=== PATIENT | female | born 1960 | race African-American/Black ===

== ENCOUNTER 2018-05-15 14:26 | Emergency (ER) | payer BC ==
[~2018-05-15] VITALS: Ht 177.8 cm; Wt 86.2 kg
[2018-05-15 15:43] LABS: ABSOLUTE NEUTROPHILS 7.4 thou/uL (1.4-8.2); BASOPHILS 0.7 % (0.0-2.0); EOSINOPHILS 1.5 % (0.0-3.0); HEMATOCRIT 40.4 % (37.0-47.0); HEMOGLOBIN 14.1 gm/dL (12.0-15.0); LYMPHOCYTES 18.8 % (24.0-44.0); MCH 30.8 pg (26.0-34.0); MCHC 34.8 g/dL (28.0-37.0); MCV 88.5 fL (80.0-100.0); MONOCYTES 6.5 % (1.0-8.0); PLATELET COUNT 356 thou/uL (150-400); POLYS 72.5 % (36.0-66.0); RBC 4.56 mil/uL (4.20-5.00); RDW 14.8 % (10.5-14.5); WBC 10.3 thou/uL (4.0-11.0)
[2018-05-15 15:48] LABS: ANION GAP 10 mmol/L (7-16); BUN 21 mg/dL (7-18); CHLORIDE 103 mmol/L (98-107); CO2 27 mmol/L (21-32); CREATININE 1.1 mg/dL (0.6-1.0); GLUCOSE 122 mg/dL (74-106); SODIUM 140 mmol/L (136-145)
[2018-05-15 15:56] LABS: TROPONIN-I <0.06 ng/mL (<0.06)
[2018-05-15] MEDS ORDERED: COZAAR 50 MG TA50 M1 PO (16:04)
[2018-05-15] MEDS ORDERED: AMLODIPINE-OLM1 EAC1 PO (16:04)
[2018-05-15] MEDS ORDERED: ATENOLOL 25 MG25 M1 PO (16:05)
[2018-05-15] MEDS ORDERED: MOBIC7.5 MG PO (17:15)
[2018-05-15] MEDS ORDERED: OMEPRAZOLE 20 M20 M1 PO (17:15)
[2018-05-15 17:27] VITALS: BP 136/81
--- NOTE | 2018-05-16 07:46 | EKG ---
[address] [employer] [place] [address] ELECTROCARDIOGRAM REPORT Name: SHANE LIRIANO Room #: DEP Queta#: [id number] ������������������ Admission: 05/15/18 ������������������ Attend Phys: Discharge: 05/15/18 ������������������ Date of : 58 Report #: [id number] ����������������������������������������������������������������� [id number] THIS REPORT FOR: //name// [facility] ED Test Date: 2018-05-15 Test Time: 14:42:31 Pat Name: SHANE LIRIANO Department: Room: Gender: F [employer] Consultant: . : 1960 Requested By: Wilbert Chase Order Number: [id number] MD: Elver Ayala Measurements Intervals [place] Rate: 64 P: 76 NM: 156 QRS: 38 QRSD: 91 T: 24 QT: 428 QTc: 442 Interpretive Statements Sinus rhythm No significant abnormality No previous ECG available for comparison Electronically Signed On 05-16-2018 7:46:09 [employer] by Elver Ayala [email or web address] ��������������������������������������������� <ELECTRONICALLY SIGNED> ���������������������������������������� By: Elver Ayala MD, [facility] ��������������������������������������������� 05/16/18 0746 1442 1442 Elver Ayala MD, FACC /EPI
== END 2018-05-15 17:29 | disposition home or self-care (01) ==
LOC: ER 14:26
PROVIDERS: Nurse Practitioner
DX: R07.89 Other chest pain (principal); R06.00 Dyspnea, unspecified; I10 Essential (primary) hypertension; Z88.2 Allergy status to sulfonamides